=== PATIENT | female | born 1985 | race African-American/Black ===

== ENCOUNTER 2021-05-18 12:14 | Emergency (ER) | payer OTHER ==
[~2021-05-18] VITALS: Ht 170.2 cm; Wt 95.3 kg
[2021-05-18 12:20] VITALS: BP 135/89
[2021-05-18] MEDS ORDERED: NAPR-54 PO (12:21)
[2021-05-18] MEDS ORDERED: [UNRECOGNIZED DRUG - CODE] TP (12:21)
[2021-05-18] MEDS ORDERED: LOTC TP (12:21)
--- NOTE | 2021-05-18 13:32 | NUR ---
NO NURSING INTERVENTIONS PERFORMED.
--- NOTE | 2021-05-18 13:38 | NUR ---
Patient discharged with v/s stable. Written and verbal after care instructions given and explained. Patient alert, oriented and verbalized understanding of instructions. Ambulatory with steady gait. All questions addressed prior to discharge. ID band removed. Patient advised to follow up with PMD. Rx of Naproxen, Salicylic acid, lotrimin given. Patient educated on indication of medication including possible reaction and side effects. Opportunity to ask questions provided and answered.
== END 2021-05-18 13:38 | disposition home or self-care (01) ==
LOC: MED 12:14
DX: B07.0 Plantar wart (principal)
CPT/HCPCS: 99282

== ENCOUNTER 2021-07-02 16:50 | Emergency (ER) | payer OTHER ==
[~2021-07-02] VITALS: Ht 170.2 cm; Wt 100.2 kg
[~2021-07-02 16:50] MED LIST: LOTC TP; NAPR-54 PO; [UNRECOGNIZED DRUG - CODE] TP
[2021-07-02 17:17] VITALS: BP 151/66
--- NOTE | 2021-07-02 17:24 | NUR ---
PT SENT TO LOBBY
[2021-07-02] MEDS ORDERED: IBUP-2213 PO (17:53)
[2021-07-02 18:09] VITALS: BP 151/66
== END 2021-07-02 18:09 | disposition home or self-care (01) ==
LOC: MED 16:50
DX: M79.652 Pain in left thigh (principal); Z79.1 Long term (current) use of non-steroidal anti-inflammatories (NSAID); Z79.899 Other long term (current) drug therapy
CPT/HCPCS: 99282

== ENCOUNTER 2022-01-02 20:39 | Emergency (ER) | payer OTHER ==
[~2022-01-02] VITALS: Ht 170.2 cm; Wt 97.1 kg
[~2022-01-02 20:39] MED LIST changes: +IBUP-2213 PO
[2022-01-02 20:57] VITALS: BP 121/72
--- NOTE | 2022-01-02 21:05 | NUR ---
PT AMBULATORY TO BED 08.
--- NOTE | 2022-01-02 21:11 | NUR ---
Dr. Schulz examining patient.
[2022-01-02] MEDS ORDERED: KETOROLAC 60 MG/2 ML VIAL IM ONE ×2 (21:15→21:17)
--- NOTE | 2022-01-02 21:33 | NUR ---
36 YO F BIB SELF FOR RT ANKLE / FOOR PAIN. PT STATES SHE WAS PLAYING SOCCER SUNDAY AND SHE KICKED IT WRONG. PT STATES THIS HAPPENEND ON SUNDAY AND PAIN STARTED SUNDAY DENIES N/V/D; PT DENIES ANY FEVER, CP, SOB, OR COUGH AT THIS TIMESKIN IS PINK/WARM/DRY; AAOX4. UNSTEADY AND UNEVEN GAIT DUE TO FOOT PAINP PATIENT STATES PAIN OF 10/10 AT THIS TIME; VSS; ALLERGIES:NONE PMH:ASTHMA RX: NONE
[2022-01-02] MEDS ORDERED: NAPR-1704 PO (22:32)
[2022-01-02 22:54] VITALS: BP 121/72
--- NOTE | 2022-01-02 22:54 | NUR ---
Patient discharged with v/s stable. Written and verbal after care instructions given and explained. Patient alert, oriented and verbalized understanding of instructions. Ambulatory with CRUTCHES. All questions addressed prior to discharge. ID band removed. Patient advised to follow up with PMD. Rx of NAPROXEN given. Opportunity to ask questions provided and answered.
--- NOTE | 2022-01-02 22:57 | NUR ---
The patient's care was reviewed and supervised by Hailey Ramirez RN.
== END 2022-01-02 22:54 | disposition home or self-care (01) ==
LOC: MED 20:39
DX: S93.401A Sprain of unspecified ligament of right ankle, initial encounter (principal); J45.909 Unspecified asthma, uncomplicated; Z90.49 Acquired absence of other specified parts of digestive tract; Z79.1 Long term (current) use of non-steroidal anti-inflammatories (NSAID); Z79.899 Other long term (current) drug therapy; X58.XXXA Exposure to other specified factors, initial encounter; Y92.89 Other specified places as the place of occurrence of the external cause; Y93.89 Activity, other specified; Y99.8 Other external cause status
CPT/HCPCS: 29515; 73610; 73630; 96372; 99284; J1885; Q0092

== ENCOUNTER 2024-02-07 19:32 | Emergency (ER) | payer MEDICAID, OTHER ==
[~2024-02-07] VITALS: Ht 170.2 cm; Wt 118.8 kg
[~2024-02-07 19:32] MED LIST changes: +NAPR-1704 PO; +NAPR-337 PO; -NAPR-54 PO
[2024-02-07 19:42] VITALS: BP 132/84; PULSE 74; RESP 18; TEMP 98.3; O2SAT 100
[2024-02-07 21:00] VITALS: BP 132/84; PULSE 74; RESP 18; TEMP 98.3; O2SAT 100
== END 2024-02-07 21:52 | disposition home or self-care (01) ==
LOC: MED 19:32
DX: O9A.211 Injury, poisoning and certain other consequences of external causes complicating pregnancy, first trimester (principal); S00.83XA Contusion of other part of head, initial encounter; O99.511 Diseases of the respiratory system complicating pregnancy, first trimester; J45.909 Unspecified asthma, uncomplicated; R03.0 Elevated blood-pressure reading, without diagnosis of hypertension; Z90.49 Acquired absence of other specified parts of digestive tract; Z3A.12 12 weeks gestation of pregnancy; Z79.1 Long term (current) use of non-steroidal anti-inflammatories (NSAID); Z79.899 Other long term (current) drug therapy; W22.8XXA Striking against or struck by other objects, initial encounter; Y93.89 Activity, other specified; Y92.89 Other specified places as the place of occurrence of the external cause; Y99.8 Other external cause status
CPT/HCPCS: 99282